=== PATIENT | female | born 1965 | race Caucasian/White ===

== ENCOUNTER 2022-02-10 11:14 | Day surgery (SDC) | payer SELFPAY ==
[~2022-02-10 11:14] MED LIST: Acetaminophen 325 MG Tab PO SCH; Lactated Ringers 1,000 ML IV SCH; Lidocaine 1%/Sod Bicarbonate in NS 8.4% 1 ML Syringe IDERM PRN; Pregabalin 25 MG Cap PO SCH; Sodium Chloride 0.9% 10 ML Syringe FLUSH PRN; Sodium Chloride 0.9% 10 ML Syringe FLUSH SCH; oxyCODONE ER 10 MG TAB.ER PO SCH
[2022-02-10] MEDS ORDERED: fentaNYL 100 MCG/2 ML SDV ONE (12:03)
[2022-02-10] MEDS ORDERED: Midazolam 1 MG/ML 2 ML SDV ONE (12:03)
[2022-02-10] MEDS ORDERED: Propofol 200 MG/20 ML SDV ONE ×2 (12:05)
[2022-02-10] MEDS ORDERED: ceFAZolin 2 GM Vial ONE (12:21)
[2022-02-10] MEDS ORDERED: Lidocaine 1% 2 ML ONE (12:21)
[2022-02-10] MEDS ORDERED: HYDROmorphone 0.5 MG/0.5 ML Syringe IVPUSH PRN (12:37)
[2022-02-10] MEDS ORDERED: fentaNYL 100 MCG/2 ML SDV IVPUSH PRN (12:37)
[2022-02-10] MEDS ORDERED: Phenylephrine HCl In 0.9% NaCl 1 MG/10 ML Vial ONE (12:52)
[2022-02-10] MEDS: Vancomycin 1 GM SDV ONE ×2 (13:00→13:05)
[2022-02-10] MEDS: Morphine 8 MG, EPINEPHrine 0.3 MG, Cefuroxime 750 MG, Ketorolac 30 MG, Sodium Chloride ... PRN ×10 (13:01→13:06)
[2022-02-10] MEDS ORDERED: Lactated Ringers 1,000 ML ONE (13:12)
[2022-02-10] MEDS ORDERED: Acetaminophen/HYDROcodone 325-5 MG Tab PO PRN (13:46)
[2022-02-10] MEDS ORDERED: Ondansetron 4 MG/2 ML SDV ONE (15:40)
[2022-02-10] MEDS ORDERED: Ondansetron 4 MG/2 ML SDV IVPUSH SCH (15:43)
[2022-02-10] MEDS ORDERED: Acetaminophen/HYDROcodone 325-5 MG Tab PO SCH (17:03)
== END 2022-02-10 17:55 | disposition home or self-care (01) ==
LOC: JD.SDS 11:14
PROVIDERS: ATTEND Orthopaedic Surgery
DX: M16.11 Unilateral primary osteoarthritis, right hip (principal); F17.210 Nicotine dependence, cigarettes, uncomplicated; R73.03 Prediabetes; Z98.890 Other specified postprocedural states; Z79.899 Other long term (current) drug therapy
CPT/HCPCS: 0055T; 27130; 36415; 73501; 86850; 86900; 86901; 97110; 97116; 97161; A9270; C1713; C1776; J0171; J0690; J0697; J1885; J2250; J2270; J2405; J2704; J3010; J3370; J7120; 01214

== ENCOUNTER 2024-01-23 10:57 | Emergency (ER) | payer BC, MEDICAID ==
[2024-01-23] MEDS ORDERED: Sodium Chloride 0.9% 10 ML Syringe FLUSH PRN (11:18)
[2024-01-23 11:31] LABS: BASOPHILS PERCENT AUTO 0.1 % (0.0-1.0); EOSINOPHILS ABSOLUTE AUTO 0.1 K/mm3 (0.0-0.4); EOSINOPHILS PERCENT AUTO 0.6 % (0.0-6.0); HEMATOCRIT 42.6 % (37.0-47.0); HEMOGLOBIN 14.5 gm/dl (12.0-16.0); IMMATURE GRAN ABSOLUTE AUTO 0.04 K/mm3 (0.00-0.05); IMMATURE GRAN PERCENT AUTO 0.3 % (0.0-0.4); LYMPHOCYTES ABSOLUTE AUTO 1.8 K/mm3 (1.0-4.8); LYMPHOCYTES PERCENT AUTO 15.6 % (24.0-44.0); MEAN CORPUSCULAR HEMOGLOBIN 31.3 pg (28.0-32.0); MEAN CORPUSCULAR VOLUME 91.8 fl (83.0-99.0); MEAN PLATELET VOLUME 9.5 fl (9.4-12.3); MONOCYTES ABSOLUTE AUTO 0.7 K/mm3 (0.0-0.8); MONOCYTES PERCENT AUTO 6.3 % (0.0-8.0); NEUTROPHILS PERCENT AUTO 77.1 % (41.0-71.0); PLATELET COUNT,PLT 209 K/mm3 (150-400); RED BLOOD CELL COUNT 4.64 M/mm3 (4.10-5.30); WHITE BLOOD CELL COUNT,WBC 11.66 K/mm3 (3.9-11.3)
[2024-01-23 11:55] LABS: A/G RATIO 1.1 (1-2); ANION GAP 14.2 (5-15); BILIRUBIN TOTAL 0.3 mg/dL (0.2-1.0); C-REACTIVE PROTEIN 8.09 mg/dL (<0.30); CALCIUM 9.7 mg/dL (8.5-10.1); EST CRCL DRUG DOSING (CG) 47.81 mL/min; POTASSIUM,K 3.2 mEq/L (3.5-5.1); PROTEIN TOTAL,TP 7.8 g/dl (6.4-8.2)
[2024-01-23] MEDS: Sodium Chloride 0.9% 100 ML IV SCH (12:35)
[2024-01-23] MEDS: Sodium Chloride 0.9% 10 ML Syringe FLUSH ONE (12:35)
[2024-01-23] MEDS: Iopamidol 755 Mg/ML 100 ML Bottle IVPUSH ONE (12:35)
== END 2024-01-23 14:12 | disposition home or self-care (01) ==
LOC: JD.ED 10:57
DX: R07.89 Other chest pain (principal); K21.9 Gastro-esophageal reflux disease without esophagitis
CPT/HCPCS: 36415; 71046; 71275; 80053; 84484; 85025; 85379; 86140; 93005; 99285; J3490; Q9967; 93010; 99284

== ENCOUNTER 2024-03-01 08:28 | Day surgery (SDC) | payer BC ==
[2024-03-01] MEDS: Lactated Ringers 1,000 ML IV SCH (08:45)
[2024-03-01] MEDS ORDERED: Propofol 200 MG/20 ML SDV ONE ×2 (09:24→09:40)
[2024-03-01] MEDS ORDERED: Sodium Chloride 0.9% 10 ML Syringe FLUSH SCH (21:00)
== END 2024-03-01 11:02 | disposition home or self-care (01) ==
LOC: JD.SDS 08:28
PROVIDERS: ATTEND Surgery
DX: Z12.11 Encounter for screening for malignant neoplasm of colon (principal); K63.89 Other specified diseases of intestine; K21.9 Gastro-esophageal reflux disease without esophagitis; K58.9 Irritable bowel syndrome, unspecified; F17.210 Nicotine dependence, cigarettes, uncomplicated; Z79.899 Other long term (current) drug therapy
CPT/HCPCS: 43239; 45385; J2704; J7120; 00813